=== PATIENT | male | born 1945 | race Hispanic/Latino ===

== ENCOUNTER → 2017-09-06 | Day surgery (SDC) | payer OTHER ==
[~2017-09-06] VITALS: Ht 162.6 cm; Wt 82.1 kg
[~2017-09-06] MED LIST: AMICAR PO; BACL10TA PO; FLUT1AER IH; GLIP1TAB6 PO; INSU100I21 SQ; IRON18TA PO; LISI40TA4 PO; MOMETASONE NASAL; OLOP2.5D OU; OMEP20CA10 PO; PRAV10TA39 PO; PROPOFOL 10 MG/ML 20ML VIAL IV ONE; SODIUM CHLORIDE 0.9% 1000ML 1,000 ML IV ONE
[2017-09-06 07:18] VITALS: BP 118/64
== END ==
LOC: ENDO 10:00
PROVIDERS: ATTEND Internal Medicine Gastroenterology
DX: K31.811 Angiodysplasia of stomach and duodenum with bleeding (principal); J45.909 Unspecified asthma, uncomplicated; E11.9 Type 2 diabetes mellitus without complications; M19.90 Unspecified osteoarthritis, unspecified site; D50.9 Iron deficiency anemia, unspecified; D64.9 Anemia, unspecified; Z79.4 Long term (current) use of insulin
CPT/HCPCS: 43255; 82948 ×2; A4606; J2704; J7030

== ENCOUNTER 2017-09-27 06:20 | Day surgery (SDC) | payer OTHER ==
[~2017-09-27] VITALS: Ht 165.1 cm; Wt 79.6 kg
[~2017-09-27 06:20] MED LIST changes: -PROPOFOL 10 MG/ML 20ML VIAL IV ONE; -SODIUM CHLORIDE 0.9% 1000ML 1,000 ML IV ONE
[2017-09-27] MEDS ORDERED: SODIUM CHLORIDE 0.9% 1000ML 1,000 ML IV ONE (06:26)
[2017-09-27 06:40] VITALS: BP 125/49
[2017-09-27] MEDS ORDERED: PROPOFOL 10 MG/ML 20ML VIAL IV ONE (07:26)
[2017-09-27] MEDS ORDERED: GLYCOPYRROLATE 0.2 MG/ML 5 ML VIAL ONE (07:26)
[2017-09-27] MEDS ORDERED: FENTANYL CITRATE PF 50 MCG/1 ML 2ML VIAL ONE (07:26)
[2017-09-27] MEDS ORDERED: PHENYLEPHRINE HCL 10 MG/ML 1ML VIAL IV ONE (07:46)
== END 2017-09-27 08:25 | disposition home or self-care (01) ==
LOC: DAH 06:20
PROVIDERS: ATTEND Internal Medicine Gastroenterology
DX: K55.21 Angiodysplasia of colon with hemorrhage (principal); K92.1 Melena; E11.9 Type 2 diabetes mellitus without complications; D50.9 Iron deficiency anemia, unspecified; J45.909 Unspecified asthma, uncomplicated; I78.0 Hereditary hemorrhagic telangiectasia; M19.90 Unspecified osteoarthritis, unspecified site; Z79.4 Long term (current) use of insulin
CPT/HCPCS: 45382; 82948 ×2; A4606; J2370; J2704; J3010; J3490; J7030; G9654